=== PATIENT | male | born 1995 | race Caucasian/White ===

== ENCOUNTER 2017-02-09 06:54 | Day surgery (SDC) | payer BC, OTHER ==
[~2017-02-09] VITALS: Ht 172.7 cm; Wt 70.0 kg
[2017-02-09] MEDS ORDERED: ONDANSETRON 2MG/ML, 2ML IVPush PRN (08:00)
[2017-02-09] MEDS ORDERED: HYDROcodone/APAP 7.5-325MG/15ML UDC PO PRN (08:00)
[2017-02-09] MEDS ORDERED: LABETALOL 5MG/ML, 20ML IV PRN (08:00)
[2017-02-09] MEDS ORDERED: FENTANYL PF 100 MCG/2ML IV PRN (08:00)
[2017-02-09] MEDS ORDERED: HYDROmorphone 1 MG/ML, 1ML IV PRN (08:00)
[2017-02-09] MEDS ORDERED: EPHEDRINE 50 MG/ML, 1ML IVPush PRN (08:00)
[2017-02-09] MEDS ORDERED: ACETAMINOPHEN 325 MG TABLET PO PRN (08:00)
[2017-02-09] MEDS ORDERED: MIDAZOLAM 1 MG/ML, 2ML IV PRN (08:00)
[2017-02-09] MEDS ORDERED: KETOROLAC 30 MG/1 ML IV PRN (08:00)
[2017-02-09] MEDS ORDERED: PLEASE ENTER ALLERGIES MC SCH ×2 (08:00)
[2017-02-09] MEDS ORDERED: PROMETHAZINE 25 MG/ML, 1ML IV PRN (08:00)
[2017-02-09] MEDS ORDERED: PLEASE ENTER HEIGHT AND WEIGHT MC SCH (08:00)
[2017-02-09] MEDS ORDERED: OXYcodone 5 MG/5 ML ORAL.SOL UDC PO PRN (08:00)
[2017-02-09] MEDS ORDERED: MEPERIDINE/PF 25MG/0.5ML IVPush PRN (08:00)
[2017-02-09] MEDS ORDERED: hydrALAzine 20 MG/ML, 1ML IV PRN (08:00)
[2017-02-09 08:13] VITALS: BP 128/74
[2017-02-09] MEDS ORDERED: LACTATED RINGERS 1,000 ML IV SCH (08:16)
[2017-02-09] MEDS ORDERED: IBUP800T PO (08:19)
[2017-02-09] MEDS ORDERED: ACET-76 PO (08:19)
[2017-02-09] MEDS ORDERED: CALC1CAP PO (08:19)
[2017-02-09] MEDS ORDERED: LIDOCAINE 1%, 2ML ONE (08:22)
[2017-02-09] MEDS ORDERED: LIDOCAINE 1%, 2ML SQ PRN (08:30)
[2017-02-09] MEDS ORDERED: BACITRACIN OINT 500U/GM, 15 GM ONE (08:39)
[2017-02-09] MEDS ORDERED: BUPIVACAINE/PF-EPI 0.5% 1:200K ONE (08:40)
[2017-02-09] MEDS ORDERED: PROPOFOL 10 MG/ML, 50ML ONE (09:12)
[2017-02-09] MEDS ORDERED: ONDANSETRON 2MG/ML, 2ML ONE (09:12)
[2017-02-09] MEDS ORDERED: DEXAMETHASONE 4 MG/ML, 1ML ONE (09:12)
[2017-02-09] MEDS ORDERED: CEFAZOLIN 1,000 MG ONE (09:12)
== END 2017-02-09 11:40 | disposition home or self-care (01) ==
LOC: OUT 06:54
PROVIDERS: ATTEND Orthopaedic Surgery
DX: S82.62XA Displaced fracture of lateral malleolus of left fibula, initial encounter for closed fracture (principal); W19.XXXA Unspecified fall, initial encounter; Y93.9 Activity, unspecified; Y92.9 Unspecified place or not applicable; Y99.9 Unspecified external cause status
CPT/HCPCS: 27792; 73600; 76000; C1713; J0690; J1100; J2405; J2704; J3490; J7120

== ENCOUNTER 2018-05-26 12:27 | Day surgery (SDC) | payer BC ==
[~2018-05-26] VITALS: Ht 172.7 cm; Wt 69.4 kg
[~2018-05-26 12:27] MED LIST: ACET-76 PO; CALC1CAP PO; IBUP-1223 PO
[2018-05-26 12:55] VITALS: BP 133/72
[2018-05-26] MEDS ORDERED: LACTATED RINGERS 1,000 ML IV SCH (13:11)
[2018-05-26] MEDS ORDERED: BUPIVACAINE/PF 0.5% ONE (14:01)
[2018-05-26] MEDS ORDERED: LIDOCAINE/PF 1%, 30ML ONE (14:01)
[2018-05-26] MEDS ORDERED: MIDAZOLAM 1 MG/ML, 2ML ONE (14:06)
[2018-05-26] MEDS ORDERED: FENTANYL PF 250 MCG/5ML ONE (14:07)
[2018-05-26] MEDS ORDERED: ONDANSETRON ODT 8 MG PO PRN (15:00)
[2018-05-26] MEDS ORDERED: FENTANYL PF 100 MCG/2ML IV PRN (15:00)
[2018-05-26] MEDS ORDERED: OXYcodone 5 MG/5 ML ORAL.SOL UDC PO PRN (15:00)
[2018-05-26] MEDS ORDERED: MEPERIDINE/PF 25MG/0.5ML IVPush PRN (15:00)
[2018-05-26] MEDS ORDERED: ACETAMINOPHEN 325 MG TABLET PO PRN (15:00)
[2018-05-26] MEDS ORDERED: ONDANSETRON 2MG/ML, 2ML IV PRN (15:00)
[2018-05-26] MEDS ORDERED: PROMETHAZINE 25 MG/ML, 1ML IV PRN (15:00)
[2018-05-26] MEDS ORDERED: MORPHINE SULFATE 4 MG/ML, 1ML IVPush PRN (15:00)
[2018-05-26] MEDS ORDERED: ACETAMINOPHEN 500 MG TABLET PO ONE (15:00)
[2018-05-26] MEDS ORDERED: SUCCINYLCHOLINE 20 MG/ML, 10ML ONE (15:57)
[2018-05-26] MEDS ORDERED: NEOSTIGMINE 1 MG/ML, 10ML ONE (15:57)
[2018-05-26] MEDS ORDERED: ONDANSETRON 2MG/ML, 2ML ONE (15:57)
[2018-05-26] MEDS ORDERED: PROPOFOL 10 MG/ML, 20ML ONE (15:57)
[2018-05-26] MEDS ORDERED: CEFAZOLIN 1,000 MG ONE (15:57)
[2018-05-26] MEDS ORDERED: ROCURONIUM 10MG/ML,5ML ONE (15:57)
[2018-05-26] MEDS ORDERED: DEXAMETHASONE 4 MG/ML, 1ML ONE (15:57)
[2018-05-26] MEDS ORDERED: GLYCOPYRROLATE 0.2MG/1ML, 5ML ONE (15:57)
[2018-05-26] MEDS ORDERED: OXYcodone 5 MG/5 ML ORAL.SOL UDC ONE (16:38)
== END 2018-05-26 18:00 | disposition home or self-care (01) ==
LOC: OR 12:27 → OUT 18:00
PROVIDERS: ATTEND Orthopaedic Surgery
DX: S93.491A Sprain of other ligament of right ankle, initial encounter (principal); M24.671 Ankylosis, right ankle; X58.XXXA Exposure to other specified factors, initial encounter; Y93.89 Activity, other specified; Y92.89 Other specified places as the place of occurrence of the external cause; Y99.8 Other external cause status
CPT/HCPCS: 29898; 76000; J0330; J0690; J1100; J2250; J2405; J2704; J2710; J3010; J3490; J7120